=== PATIENT | male | born 1985 | race Caucasian/White ===

== ENCOUNTER 2025-02-04 13:19 | Emergency (ER) | payer OTHER ==
[~2025-02-04] VITALS: Ht 172.7 cm; Wt 131.1 kg
[2025-02-04] MEDS ORDERED: OMEPRAZOLE20 MG PO (14:49)
[2025-02-04] MEDS ORDERED: LEVETIRACETAM500 MG PO (14:49)
[2025-02-04] MEDS ORDERED: LEVOTHYROXINE50 MCG PO (14:49)
[2025-02-04] MEDS ORDERED: LOSARTAN-HCTZ1 EAC1 PO (14:49)
[2025-02-04] MEDS ORDERED: ASPIRIN/ACETAMINOPHEN/CAFFEINE 1 TAB TAB PO ONE (17:00)
[2025-02-04] MEDS ORDERED: ONDANSETRON 4 MG TAB ODT SL ONE (17:45)
[2025-02-04] MEDS ORDERED: SUMAtriptan succinate 6 MG/0.5 ML VIAL SUB-Q ONE (17:45)
[2025-02-04 18:42] VITALS: BP 150/88
== END 2025-02-04 18:42 | disposition home or self-care (01) ==
LOC: ED 13:19
DX: R51.9 Headache, unspecified (principal); I10 Essential (primary) hypertension; Z79.899 Other long term (current) drug therapy
CPT/HCPCS: 70450; 96372; 99283-25; A9270; J3030